=== PATIENT | male | born 1955 | race Caucasian/White ===

== ENCOUNTER 2019-03-08 16:22 | Emergency (ER) | payer OTHER ==
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
[2019-03-08 18:23] LABS: CHLORIDE,CL 104 mmol/L (98-107); SODIUM,NA 142 mmol/L (136-148)
[2019-03-08] MEDS ORDERED: Bacitracin Oint 1 GM U/D Packet TOP ONE (18:47)
== END 2019-03-08 19:03 | disposition home or self-care (01) ==
LOC: MW.ED 16:22
DX: S01.01XA Laceration without foreign body of scalp, initial encounter (principal); S30.0XXA Contusion of lower back and pelvis, initial encounter; S40.021A Contusion of right upper arm, initial encounter; S80.812A Abrasion, left lower leg, initial encounter; S30.811A Abrasion of abdominal wall, initial encounter; R94.02 Abnormal brain scan; V68.5XXA Driver of heavy transport vehicle injured in noncollision transport accident in traffic accident, initial encounter; Y92.410 Unspecified street and highway as the place of occurrence of the external cause
CPT/HCPCS: 70450; 70450-26; 71045; 71045-26; 72170; 72170-26; 80053; 81003; 83690; 85025; 93005; 99284-25